=== PATIENT | female | born 1985 | race African-American/Black ===

== ENCOUNTER 2023-01-09 13:59 | Inpatient (IN) ==
[2023-01-09] MEDS ORDERED: Lactated Ringers 1000 ml BAG 1,000 ML IV ONE ×2 (14:23→16:13)
[2023-01-09] MEDS ORDERED: Buffered Lidocaine 1% SYRIN 1 ml INTRADERM ONE (14:23)
[2023-01-09] MEDS ORDERED: Promethazine INJ(RESTRICTED) 25 MG/ML 1 ml VIAL IV PRN (14:23)
[2023-01-09] MEDS ORDERED: Lactated Ringers 1000 ml BAG 1,000 ML IV SCH ×4 (15:00→20:00)
[2023-01-09 15:02] LABS: ABS Lymphocytes 1.6 10^3/uL (1.0-4.8); ABS Monocytes 1.1 10^3/uL (0.0-0.9); ABS Neutrophils 8.4 10^3/uL (1.5-7.6); ABS Nucleated RBC 0.02 10^3/ul; Eosinophil % 0.3 %; Hematocrit 31.3 % (35-45); Hemoglobin 10.6 g/dL (11.5-14.3); Lymphocyte % 14.1 %; Mean Corpuscular Hemoglobin 29.8 pg (27-33); Mean Corpuscular Hgb Conc 33.8 g/dL (31-36); Mean Corpuscular Volume 88.2 fL (80-97); Mean Platelet Volume 7.8 fL (7.5-11.2); Nucleated Red Blood Cells % 0.1 /100 WBC (0.0-0.4); Platelet Count 310 10^3/uL (150-450); Red Blood Count 3.55 10^6/uL (3.63-4.92); Red Cell Distribution Width 16.6 % (12-17); White Blood Count 11.2 10^3/uL (3.8-11.8)
[2023-01-09] MEDS ORDERED: OBEPIDURAL (200 ML) 200 ML EPIDURAL ONE (15:24)
[2023-01-09] MEDS ORDERED: Lidocaine 1.5% EPI 1:200,000 30 ML SDV ONE (15:26)
[2023-01-09] MEDS ORDERED: Phenylephrine 40 mcg/mL 10mL (400mcg) SYRINGE IV PUSH PRN ×2 (16:13)
[2023-01-09] MEDS ORDERED: Sodium Citrate/Citric Acid LIQ 15 ML UDC PO PRN (16:13)
[2023-01-09] MEDS ORDERED: Lactated Ringers 1000 ml BAG 500 ML IV PRN ×2 (16:13)
[2023-01-09] MEDS ORDERED: OBEPIDURAL (200 ML) 200 ML EPIDURAL SCH (17:00)
[2023-01-09 17:16] LABS: Urine Appearance Clear; Urine Bilirubin Negative (Negative); Urine Blood Negative (Negative); Urine Color Yellow; Urine Glucose Negative (Negative); Urine Ketones Negative (Negative); Urine Nitrite Negative (Negative); Urine Protein Negative (Negative); Urine Specific Gravity 1.013 (1.002-1.030); Urine Urobilinogen Negative (Negative)
[2023-01-09 17:22] LABS: Urine Bacteria Absent (Absent); Urine Red Blood Cell Trace(0-2/hpf) (Absent); Urine Squamous Epithelial Cell Present (Absent); Urine White Blood Cell Trace(0-5/hpf) (Absent)
[2023-01-09 17:33] LABS: Urine Benzodiazepine Screen None Detected (None Detect); Urine Opiates Screen None Detected (None Detect)
[2023-01-09] MEDS ORDERED: Oxytocin in LR 20,000 MILLI.UNIT/1,000 ML BAG IV SCH (17:45)
[2023-01-09] MEDS ORDERED: Dibucaine 1% OINT 28.35 GM TUBE PR PRN (19:39)
[2023-01-09] MEDS ORDERED: Witch Hazel PAD JAR TOPICAL PRN (19:39)
[2023-01-10 06:14] LABS: Mean Corpuscular Hemoglobin 29.9 pg (27-33); Mean Corpuscular Hgb Conc 33.1 g/dL (31-36); Mean Corpuscular Volume 90.2 fL (80-97); Mean Platelet Volume 7.6 fL (7.5-11.2); Platelet Count 290 10^3/uL (150-450); Red Blood Count 3.33 10^6/uL (3.63-4.92); Red Cell Distribution Width 16.8 % (12-17); White Blood Count 11.5 10^3/uL (3.8-11.8)
[2023-01-10 06:43] LABS: ABS Eosinophils 0.1 10^3/uL (0.0-0.5); ABS Lymphocytes 2.3 10^3/uL (1.0-4.8); ABS Monocytes 1.6 10^3/uL (0.0-0.9); ABS Neutrophils 7.5 10^3/uL (1.5-7.6); Eosinophil % 0.5 %; Lymphocyte % 20.1 %
[2023-01-10 20:50] VITALS: BP 116/68
== END 2023-01-10 21:37 | disposition home or self-care (01) | DRG 806 ==
LOC: MCHOBOUT 13:59 → MCHOB 14:12
PROVIDERS: ADMIT Registered Nurse; ATTEND Registered Nurse

== ENCOUNTER 2024-01-05 06:57 | Inpatient (IN) ==
[2024-01-05] MEDS: Lactated Ringers 1000 ml BAG 1,000 ML IV ONE (07:19)
[2024-01-05] MEDS ORDERED: Lidocaine 1% VIAL 10 MG/ML 30 ML VIAL INJ PRN (07:36)
[2024-01-05 08:08] LABS: ABS Lymphocytes 2.4 10^3/uL (1.0-4.8); ABS Monocytes 1.4 10^3/uL (0.0-0.9); ABS Neutrophils 7.1 10^3/uL (1.5-7.6); ABS Nucleated RBC 0.01 10^3/ul; Eosinophil % 0.4 %; Hematocrit 29.9 % (35-45); Hemoglobin 10.2 g/dL (11.5-14.3); Lymphocyte % 21.6 %; Mean Corpuscular Hemoglobin 31.2 pg (27-33); Mean Corpuscular Hgb Conc 34.2 g/dL (31-36); Mean Corpuscular Volume 91.4 fL (80-97); Mean Platelet Volume 8.5 fL (7.5-11.2); Platelet Count 248 10^3/uL (150-450); Red Blood Count 3.28 10^6/uL (3.63-4.92); Red Cell Distribution Width 13.8 % (12-17); White Blood Count 10.9 10^3/uL (3.8-11.8)
[2024-01-05] MEDS: Lactated Ringers 1000 ml BAG 1,000 ML IV SCH (08:23)
[2024-01-05] MEDS: Penicillin G Potassium IV 5,000,000 UNITS in NS 0.9% 100 ml BAG 100 ML IVPB ONE (08:24)
[2024-01-05 10:44] LABS: Urine Benzodiazepine Screen None Detected (None Detect); Urine Cannabinoids Screen Presumptive Positive (None Detect); Urine Opiates Screen None Detected (None Detect)
[2024-01-05] MEDS ORDERED: Penicillin G Potassium IV 3,000,000 UNITS in NS 0.9% 100 ml BAG 100 ML IVPB SCH (12:30)
[2024-01-05] MEDS ORDERED: Midazolam 2 mg/2 ml VIAL 1 mg/ml 2 ml VIAL (2 mg) ONE ×3 (12:56→13:23)
[2024-01-05] MEDS ORDERED: fentaNYL 100 mcg/2 ml 50 MCG/ML VIAL ONE ×4 (12:57→13:46)
[2024-01-05] MEDS ORDERED: Oxytocin 10 UNITS/ML 1 ML VIAL ONE (13:17)
[2024-01-05] MEDS ORDERED: Propofol 10 MG/ML 20 ML BTL ONE ×2 (13:31→13:47)
[2024-01-05] MEDS ORDERED: Succinylcholine 200 mg VIAL 20 mg/ml 10 ml VIAL (200 mg) ONE (13:31)
[2024-01-05] MEDS ORDERED: Atropine 1 MG/ML INJ 1 ML VIAL ONE (13:34)
[2024-01-05] MEDS ORDERED: Ondansetron 4 mg VIAL 2 MG/ML 2 ml VIAL ONE (13:50)
[2024-01-05] MEDS ORDERED: Naloxone 0.4 mg VIAL 0.4 mg/ml 1 ml VIAL IV PRN (14:20)
[2024-01-05] MEDS ORDERED: fentaNYL 100 mcg/2 ml 50 MCG/ML VIAL IV PRN (14:20)
[2024-01-05] MEDS ORDERED: Glycerin ADULT 2.4 gm SUPP PR PRN (14:26)
[2024-01-05] MEDS ORDERED: Witch Hazel PAD JAR TOPICAL PRN (14:26)
[2024-01-05] MEDS ORDERED: Dibucaine 1% OINT 28.35 GM TUBE PR PRN (14:26)
[2024-01-05] MEDS: Acetaminophen IV 1 GM/100ML 1,000 MG/100 ML BAG IV ONE (14:33)
[2024-01-05] MEDS: Oxytocin in LR 20,000 MILLI.UNIT/1,000 ML BAG IV ONE (14:59)
[2024-01-05] MEDS ORDERED: Lactated Ringers 1000 ml BAG 1,000 ML IV SCH (15:00)
[2024-01-05] MEDS: ceFOXitin 2 GM IVPREMIX 2 GM/50 ML BAG ONE (15:48)
[2024-01-05] MEDS: Oxytocin in LR 20,000 MILLI.UNIT/1,000 ML BAG IV SCH (18:04)
[2024-01-06 07:34] LABS: ABS Lymphocytes 1.4 10^3/uL (1.0-4.8); ABS Monocytes 0.9 10^3/uL (0.0-0.9); ABS Neutrophils 6.9 10^3/uL (1.5-7.6); Eosinophil % 0.2 %; Lymphocyte % 15.5 %; Mean Corpuscular Hemoglobin 31.5 pg (27-33); Mean Corpuscular Hgb Conc 34.6 g/dL (31-36); Mean Corpuscular Volume 91.3 fL (80-97); Mean Platelet Volume 7.9 fL (7.5-11.2); Platelet Count 207 10^3/uL (150-450); Red Blood Count 2.85 10^6/uL (3.63-4.92); Red Cell Distribution Width 13.8 % (12-17); White Blood Count 9.1 10^3/uL (3.8-11.8)
[2024-01-07] MEDS: Ampicillin ADVAN 2 GM in NS 0.9% 100 ml BAG 100 ML IVPB SCH (19:49)
[2024-01-07] MEDS: Buffered Lidocaine 1% SYRIN 1 ml INTRADERM ONE (19:49)
[2024-01-07] MEDS: ceFOXitin 2 GM IVPREMIX 2 GM/50 ML BAG IVPB ONE (19:49)
[2024-01-07] MEDS: Betamethasone 6 mg/ml 5 ml VIAL IM SCH (19:49)
[2024-01-07] MEDS: Sodium Citrate/Citric Acid LIQ 15 ML UDC ONE (19:50)
[2024-01-07] MEDS: fentaNYL 100 mcg/2 ml 50 MCG/ML VIAL IV SLOW PU ONE (19:50)
[2024-01-08 09:27] VITALS: BP 111/53
== END 2024-01-08 12:33 | disposition home or self-care (01) | DRG 540 ==
LOC: MCHOBOUT 06:57 → MCHOB 07:06
PROVIDERS: ADMIT Obstetrics & Gynecology; ATTEND Midwife